=== PATIENT | female | born 1960 | race African-American/Black ===

== ENCOUNTER 2019-10-15 22:10 | Emergency (ER) | payer MEDICAID, OTHER ==
[~2019-10-15] VITALS: Ht 172.7 cm; Wt 86.2 kg
[2019-10-15 22:24] VITALS: BP 158/80
--- NOTE | 2019-10-15 22:30 | NUR ---
ED Nurse Note: Patient walked into ED from home with her nephew due to right wrist injury done 3 days ago, patient came in with xray report, clinic sent patient for splint on the wrist. patient is alert awake x4 ambulatory, breathing unlabored and even, speaking in full sentences.
[2019-10-15] MEDS ORDERED: IBUPROFEN600 MG ORAL (22:35)
[2019-10-15] MEDS ORDERED: HYDROCODON-ACE1 EA15 ORAL (22:35)
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
--- NOTE | 2019-10-15 22:40 | NUR ---
ED Nurse Note: patient reports hx of dm and requests her sugar to be checked. patient sugar checked, it reads "HIGH" notified to Dr. Shaffer.
[2019-10-15] MEDS ORDERED: HYDROmorphone 1mg/ml Carpuject IM ONE (22:45)
--- NOTE | 2019-10-15 23:14 | NUR ---
HAND-OFF: Report given to ALE BRINK .
--- NOTE | 2019-10-15 23:15 | NUR ---
ED Nurse Note: Hand-off report given by SOY Lucas. Pt on bed resting. Pt on SpO2 monitor. Will continue to monitor patient.
--- NOTE | 2019-10-15 23:23 | NUR ---
ED Nurse Note: Eb Lucas RN, IV line established on left AC with 20g, blood drawn and sent to lab. IV patent and intact. Patient could not give urine. Addendum: 10/15/19 at 2326 by [email or web address] ED Nurse Note: Eb Lucas RN, IV line established on left AC with 20g, blood drawn and sent to lab. IV patent and intact. Patient will provide urine at a later time.
[2019-10-15 23:42] LABS: BASOPHILS % (AUTO) 1.7 % (0.0-2.0); EOSINOPHILS % (AUTO) 3.2 % (0.0-3.0); HEMOGLOBIN 13.5 G/DL (12.0-16.0); LYMPHOCYTES % (AUTO) 43.5 % (20.0-45.0); MEAN CORPUSCULAR VOLUME 85 FL (80-99); MONOCYTES % (AUTO) 7.1 % (1.0-10.0); NEUTROPHILS % (AUTO) 44.6 % (45.0-75.0); PLATELET COUNT 308 K/UL (150-450); RED BLOOD COUNT 4.45 M/UL (4.20-5.40); RED CELL DISTRIBUTION WIDTH 10.8 % (11.6-14.8); WHITE BLOOD COUNT 6.9 K/UL (4.8-10.8)
[2019-10-15 23:49] LABS: ANION GAP 7 mmol/L (5-15); BLOOD UREA NITROGEN 29 mg/dL (7-18); CALCIUM 10.2 MG/DL (8.5-10.1); CARBON DIOXIDE 28 MMOL/L (21-32); CHLORIDE 97 MMOL/L (98-107); CREATININE 1.4 MG/DL (0.55-1.30); POTASSIUM 4.7 MMOL/L (3.5-5.1); SODIUM 132 MMOL/L (136-145)
[2019-10-16] MEDS ORDERED: Insulin Human Regular 100units/ml 3ml IV ONE
--- NOTE | 2019-10-16 00:22 | NUR ---
ED Nurse Note: Urine sent for lab.
--- NOTE | 2019-10-16 00:28 | NUR ---
ED Nurse Note: Pt complained of "ankle swelling", stating she takes HCTZ every morning. On inspection, mild edema noted bilateral ankle, non-pitting. Bilateral breath sounds are clear upon auscultation. BP at 145/86. Pt denies SOB, NAD. Will continue to monitor patient.
[2019-10-16 00:30] LABS: APPEARANCE,URINE CLEAR; BILIRUBIN, URINE NEGATIVE (NEGATIVE); COLOR,URINE PALE YELLOW; GLUCOSE, URINE (UA) 4+ (NEGATIVE); KETONES,URINE NEGATIVE (NEGATIVE); LEUKOCYTE ESTERASE ,URINE NEGATIVE (NEGATIVE); NITRITE,URINE NEGATIVE (NEGATIVE); PH,URINE 5 (4.5-8.0); PROTEIN,URINE NEGATIVE (NEGATIVE); UROBILINOGEN,URINE NORMAL MG/DL (0.0-1.0)
[2019-10-16 00:31] VITALS: BP 145/86
[2019-10-16 01:01] VITALS: BP 110/62
--- NOTE | 2019-10-16 01:02 | NUR ---
ER DISCHARGE NOTE: Patient is cleared to be discharged per ERMD, pt is aox4, on room air, with stable vital signs. pt was given dc and prescription instructions, pt was able to verbalize understanding, pt id band and iv site removed without complications. pt is able to ambulate with steady gait. pt took all belongings accompanied by family member.
== END 2019-10-16 01:01 | disposition home or self-care (01) ==
LOC: EMR 22:50
DX: S62.392A Other fracture of third metacarpal bone, right hand, initial encounter for closed fracture (principal); S62.316A Displaced fracture of base of fifth metacarpal bone, right hand, initial encounter for closed fracture; E11.65 Type 2 diabetes mellitus with hyperglycemia; I10 Essential (primary) hypertension; Y04.2XXA Assault by strike against or bumped into by another person, initial encounter; Y93.9 Activity, unspecified; Y92.9 Unspecified place or not applicable; Z79.4 Long term (current) use of insulin
CPT/HCPCS: 29125; 36415; 80048; 80307; 81001; 82962; 85025; 96361; 96372; 96374; 99284; J1170; J1815; J7030